=== PATIENT | male | born 1960 | race African-American/Black ===

== ENCOUNTER 2017-11-15 14:29 | Inpatient (IN) | payer OTHER ==
[2017-11-15 18:00] VITALS: BMI 20.4
--- NOTE | 2017-11-15 19:13 | HP ---
Admission ROS [facility] Chief Complaint: REHAB SERVICES Allergies/Adverse Reactions: Allergies Allergy/AdvReac Type Severity Reaction Status Date / Time No Known Allergies Allergy Verified 11/15/17 19:08 History of Present Illness: 57 Y.O. MAN WITH A ONE YEAR HISTORY OF K2 DEPENDENCE IS HERE SEEKING REHAB SERVICES. Exam Limitations: No Limitations - Ebola screening Have you traveled outside of the country in the last 21 days: No (N) Have you had contact with anyone from an Ebola affected area: No Have you been sick,other than usual withdrawal symptoms: No Do you have a fever: No - Review of Systems Constitutional: Changes in sleep EENT: reports: No Symptoms Reported Respiratory: reports: No Symptoms reported Cardiac: reports: No Symptoms Reported GI: reports: No Symptoms Reported : reports: No Symptoms Reported Musculoskeletal: reports: Back Pain Integumentary: reports: No Symptoms Reported Neuro: reports: No Symptoms reported Endocrine: reports: No Symptoms Reported Hematology: reports: No Symptoms Reported Psychiatric: reports: Judgement Intact, Mood/Affect Appropiate, Orientated x3 Other Systems: Reviewed and Negative Patient History - Patient Medical History Hx Anemia: No Hx Asthma: No Hx Chronic Obstructive Pulmonary Disease (COPD): No Hx Cancer: No Hx Cardiac Disorders: No Hx Congestive Heart Failure: No Hx Hypertension: No Hx Hypercholesterolemia: No Hx Pacemaker: No HX Cerebrovascular Accident: No Hx Seizures: No Hx Dementia: No Hx Diabetes: No Hx Gastrointestinal Disorders: Yes (TAKES PROTONIX ) Hx Liver Disease: No Hx Genitourinary Disorders: No Hx Sexually Transmitted Disorders: No Hx Renal Disease (ESRD): No Hx Thyroid Disease: No Hx Human Immunodeficiency Virus (HIV): No Hx Hepatitis C: No Hx Depression: Yes Hx Suicide Attempt: No Hx Bipolar Disorder: Yes Hx Schizophrenia: Yes - Patient Surgical History Past Surgical History: No - PPD History Previous Implant?: Yes Documented Results: Negative w/o proof Implanted On Prior R Admission?: No PPD to be Administered?: Yes - Reproductive History Patient is a Female of Child Bearing Age (11 -55 yrs old): No - Smoking Cessation Smoking history: Current every day smoker Have you smoked in the past 12 months: No Aproximately how many cigarettes per day: 4 Hx Chewing Tobacco Use: No Initiated information on smoking cessation: Yes 'Breaking Loose' booklet given: 11/15/17 - Substance & Tx. History Hx Alcohol Use: No Hx Substance Use: No Hx Substance Use Treatment: Yes (REHAB: ) - Substances Abused K2 Route: Smoking Frequency: 3-6 times per week Amount used: $3 Age of first use: 56 Date of Last Use: 11/07/17 Family Disease History - Family Disease History Family History: Denies Admission Physical Exam [facility] - Vital Signs Vital Signs: Vital Signs - 24 hr 11/15/17 17:58 Temperature 97.2 F L Pulse Rate 97 H Respiratory 18 Rate Blood Pressure 152/103 - Physical General Appearance: Yes: No Apparent Distress, Nourished, Appropriately Dressed , Anxious HEENTM: Yes: Hearing grossly Normal, Normal ENT Inspection, Normocephalic Respiratory: Yes: Chest Non-Tender, Lungs Clear, Normal Breath Sounds, No Respiratory Distress Neck: Yes: No masses,lesions,Nodules, Trachea in good position Breast: Yes: Breast Exam Deferred Cardiology: Yes: Regular Rhythm, Regular Rate Abdominal: Yes: Normal Bowel Sounds, Non Tender, Flat Genitourinary: Yes: Other (NO COMPLAINTS REPORTED) Back: Yes: Normal Inspection Musculoskeletal: Yes: full range of Motion, Gait Steady Extremities: Yes: Normal Capillary Refill, Normal Inspection, Normal Range of Motion, Non-Tender Neurological: Yes: Alert, Motor Strength 5/5, Normal Mood/Affect, Normal Response Integumentary: Yes: Normal Color, Dry, Warm Lymphatic: Yes: Within Normal Limits - Diagnostic (1) Other, mixed, or unspecified nondependent drug abuse, in remission Current Visit: Yes Status: Acute (2) Nicotine dependence Current Visit: Yes Status: Chronic Cleared for Admission [facility] - Detox or Rehab [facility] Level of Care: Observation Bed Claeared for Rehab Admission: Yes [facility] Breath Alcohol Content Breath Alcohol Content: 0 Urine Drug Screen - Results Drug Screen Negative: No Urine Drug Screen Results: THC-Marijuana Inpatient Rehab Admission - Initial Determination Are CD services needed?: Yes Free of communicable disease: Yes Not in need of hospitalization: Yes - Rehab Admission Criteria Previous failed treatment: Yes Poor recovery environment: Yes Comorbidities: Yes Lacks judgement: Yes Patient is meeting Inpatient Rehab admission criteria:: Yes
[2017-11-15] MEDS ORDERED: guaiFENesin/D-METHORPHAN HB 10 ML UNIT-DOSE CUPS PO PRN (19:34)
[2017-11-15] MEDS ORDERED: LOPERAMIDE HCL 2 MG CAPSULE PO PRN (19:34)
[2017-11-15] MEDS ORDERED: MAG HYDROX/AL HYDROX/SIMETH 30 ML UNIT-DOSE CUP PO PRN (19:34)
[2017-11-15] MEDS ORDERED: P-EPHED 60MG/TRIPROLIDI 2.5MG TABLET PO PRN (19:34)
[2017-11-15] MEDS ORDERED: MAGNESIUM HYDROX 2400MG/30ML ORAL SUSPENSION 30 ML CUP PO PRN (19:34)
[2017-11-15] MEDS ORDERED: hydrOXYzine PAMOATE 50 MG CAPSULE (FP) PO PRN (19:34)
[2017-11-15] MEDS ORDERED: MENTHOL/PHENOL 1 EACH UD MM PRN (19:34)
[2017-11-15] MEDS ORDERED: MAGNESIUM CITRATE 300 ML BOTTLE PO PRN (19:34)
[2017-11-15] MEDS ORDERED: DIPHENHYDRAMINE PO SCH (22:00)
[2017-11-15] MEDS ORDERED: TUBERCULIN PPD 5 TU/0.1ML VIAL ID ONE (22:18)
[2017-11-15] MEDS: THIAMINE HCL 100 MG TABLET (FP) PO SCH (22:19)
[2017-11-15 22:33] LABS: URINE APPEARANCE CLEAR; URINE BILIRUBIN NEGATIVE (NEGATIVE); URINE BLOOD NEGATIVE (NEGATIVE); URINE COLOR YELLOW; URINE GLUCOSE (UA) NEGATIVE (NEGATIVE); URINE KETONE NEGATIVE (NEGATIVE); URINE LEUK ESTERASE TRACE (NEGATIVE); URINE NITRITE NEGATIVE (NEGATIVE); URINE PROTEIN NEGATIVE (NEGATIVE)
[2017-11-15 22:55] LABS: EPI CELLS RARE /HPF (FEW); URINE MUCUS RARE
[2017-11-16] MEDS ORDERED: PANTOPRAZOLE SODIUM PO SCH (10:00)
[2017-11-16] MEDS: PRENATAL VITAMINS W/ FOLIC ACID TABLET (FP) PO SCH (10:12)
[2017-11-16] MEDS: NICOTINE 14 MG/24 HOURS TOPICAL PATCH TD SCH (10:13)
[2017-11-16] MEDS: NICOTINE POLACRILEX 2 MG GUM BC PRN (10:13)
[2017-11-16 10:26] LABS: HEMATOCRIT 38.8 % (35.4-49); HEMOGLOBIN 12.7 GM/dL (11.7-16.9); MCH 31.7 pg (25.7-33.7); MCHC 32.8 g/dl (32.0-35.9); MEAN CELL VOLUME 96.8 fl (80-96); MEAN PLT VOLUME 7.9 fl (7.5-11.1); PLATELET COUNT 280 K/MM3 (134-434); RBC 4.01 M/mm3 (4.00-5.60); RDW 14.5 % (11.9-15.9); WHITE BLOOD COUNT 12.1 K/mm3 (4.0-10.0)
[2017-11-16 10:35] LABS: ALBUMIN 3.6 g/dl (3.4-5.0); ANION GAP 7 (8-16); BLOOD UREA NITROGEN 13 mg/dL (7-18); CHLORIDE 107 mmol/L (98-107); CO2 29 mmol/L (21-32); GLUCOSE,RANDOM 145 mg/dL (74-106); POTASSIUM 3.8 mmol/L (3.5-5.1); SODIUM 143 mmol/L (136-145)
[2017-11-16 10:39] LABS: ALK PHOS 90 U/L (45-117); BILIRUBIN,TOTAL 0.2 mg/dL (0.2-1.0); CREATININE 1.1 mg/dL (0.7-1.3); SGOT/AST 21 U/L (15-37); SGPT/ALT 21 U/L (12-78)
[2017-11-16] MEDS: CHOLECALCIFEROL (VITAMIN D3) 1,000 UNIT TABLET (FP) PO SCH (14:28)
[2017-11-16] MEDS: PANTOPRAZOLE 40 MG TABLET (FP) PO SCH (14:28)
--- NOTE | 2017-11-16 16:01 | EKG ---
Test Reason : Blood Pressure : / mmHG Vent. Rate : 085 BPM Atrial Rate : 085 BPM P-R Int : 130 ms QRS Dur : 080 ms QT Int : 364 ms P-R-T Axes : 070 -21 023 degrees QTc Int : 433 ms NORMAL SINUS RHYTHM SEPTAL INFARCT , AGE UNDETERMINED ABNORMAL ECG NO PREVIOUS ECGS AVAILABLE Confirmed by BOWEN RINCON MD ([id number]) on 11/16/2017 4:00:53 PM Referred By: Confirmed By:BOWEN RINCON MD
[2017-11-16] MEDS: INSULIN SLIDING SCALE (NOVOLOG) 1 VIAL SQ SCH (17:11)
[2017-11-16] MEDS: THIAMINE HCL 100 MG TABLET (FP) PO SCH (21:25)
[2017-11-16] MEDS: diphenhydrAMINE HCL 50 MG CAPSULE PO PRN (21:26)
[2017-11-17] MEDS: INSULIN SLIDING SCALE (NOVOLOG) 1 VIAL SQ SCH ×3 (06:57→17:09)
[2017-11-17] MEDS: PRENATAL VITAMINS W/ FOLIC ACID TABLET (FP) PO SCH (10:20)
[2017-11-17] MEDS: NICOTINE 14 MG/24 HOURS TOPICAL PATCH TD SCH (10:20)
[2017-11-17] MEDS: CHOLECALCIFEROL (VITAMIN D3) 1,000 UNIT TABLET (FP) PO SCH (10:20)
[2017-11-17] MEDS: PANTOPRAZOLE 40 MG TABLET (FP) PO SCH (10:20)
[2017-11-17] MEDS: NICOTINE POLACRILEX 2 MG GUM BC PRN (10:21)
--- NOTE | 2017-11-17 13:19 | HP ---
Psychiatrist Admission - Data Date of interview: 11/17/17 Admission source: [facility] Identifying data: This is the first [facility] admission for this 57 years old single Black male, unemployed on SSI, living in transitional housing([facility]) Medical History: Significant for GERD. Smokes 4 cigarettes daily Psychiatric History: Patient reports multiple psychiatric hospitalizations since age 19. He is known to [facility](multiple admissions), [facility] and most recent one in May 2017 to [facility]. Receives psychiatric outpatient services from [facility](outreach) and he is prescribed Risperdal 4 mg po BID, Risperdal Consta 25 mg IN Q 2 weeks and Benadryl 50 mg po HS. Claims he got the injection before 11/07/17. Reports being diagnosed with Schizoaffective Disorder. At present reports feeling and sleeping well. Denies experiencing psychotic, manic or depressive symptoms as well as S/H ideations Physical/Sexual Abuse/Trauma History: Denies history of emotional, physical or sexual abuse as well as DV relationship. No service Additional Comment: Reports history of a few previous [place] Vital Signs: Vital Signs - 24 hr 11/17/17 11/17/17 11/17/17 00:30 03:30 07:05 Temperature 97.7 F Pulse Rate 80 Respiratory 18 18 18 Rate Blood Pressure 130/98 Allergies/Adverse Reactions: Allergies Allergy/AdvReac Type Severity Reaction Status Date / Time No Known Allergies Allergy Verified 11/15/17 19:08 Date of last physical exam: 11/15/17 Concur with the findings of this exam: Yes - Substance Abuse/Tx History Hx Alcohol Use: No Hx Substance Use: Yes Substance Use Type: Marijuana (Started using K2 at age 56, consumes $3 worth 3- 6 times weekly.Last smoked on 11/07/17) Hx Substance Use Treatment: Yes (One inpt rehab in the 's in [place]) Mental Status Exam - Mental Status Exam Alert and Oriented to: Time, Place, Person Cognitive Function: Fair Patient Appearance: Disheveled Mood: Hopeful, Euthymic Affect: Blunted Patient Behavior: Cooperative Speech Pattern: Clear Voice Loudness: Normal Thought Process: Intact, Goal Oriented Thought Disorder: Not Present Hallucinations: Denies Suicidal Ideation: Denies Homicidal Ideation: Denies Insight/Judgement: Fair Sleep: Well Appetite: Good Muscle strength/Tone: Normal Gait/Station: Normal Psychiatric Findings - Problem List ([place] 1, 2,3) (1) Cannabis dependence Current Visit: Yes Status: Acute (2) Nicotine dependence Current Visit: Yes Status: Chronic (3) Schizoaffective disorder Current Visit: Yes Status: Chronic (4) GERD (gastroesophageal reflux disease) Current Visit: Yes Status: Chronic - Initial Treatment Plan Initial Treatment Plan: 1) Continue Risperdal 4 mg po BID and Benadryl 50 mg po HS. 2) Get collateral information on Risperdal Consta and act accordingly. According to pharmacy claim, script for Risperdal consta was last filled on 10/21 for 2 doses. If it was given on the week of 10/21/17, it will would be due this week. 3) Monitor progress
[2017-11-17] MEDS: THIAMINE HCL 100 MG TABLET (FP) PO SCH (21:04)
[2017-11-17] MEDS: diphenhydrAMINE HCL 50 MG CAPSULE PO PRN (21:05)
[2017-11-18] MEDS: INSULIN SLIDING SCALE (NOVOLOG) 1 VIAL SQ SCH ×3 (06:55→17:04)
[2017-11-18] MEDS: PANTOPRAZOLE 40 MG TABLET (FP) PO SCH (09:43)
[2017-11-18] MEDS: PRENATAL VITAMINS W/ FOLIC ACID TABLET (FP) PO SCH (09:44)
[2017-11-18] MEDS: CHOLECALCIFEROL (VITAMIN D3) 1,000 UNIT TABLET (FP) PO SCH (09:44)
[2017-11-18] MEDS: NICOTINE 14 MG/24 HOURS TOPICAL PATCH TD SCH (09:44)
[2017-11-18] MEDS ORDERED: PT OWN MED DRAWER 7, Y5N ONE (10:36)
[2017-11-18] MEDS: risperiDONE 2 MG TABLET PO SCH ×2 (11:25→22:02)
--- NOTE | 2017-11-18 13:35 | PN ---
[facility] Progress Note Note: Psychiatric nurse practitioner: Pt. seen for initiation of treatment. Dr. Marcos's note read and appreciated. Pharmacy claims reviewed. Principal Cyber Engineer contacted patient's pharmacy and pharmacist Dr. Mejia was able to verify patient's risperdal dose of 4mg BID. Last prescription was delivered to patient on 10/22/2017. Pt. reports most recent risperdal dose given on saturday11/15/17. Principal Cyber Engineer spoke to Dr. marcos and psychiatrist also highly recommended patient remains on risperdal 4mg BID until risperdal consta information is obtained from patients outpatient department. Pt. informed of the risk of sexual impotence, gynecomastia, and involuntary abnormal movements such as akathesia and dystonia. Pt. agreeable with plan. Verbal consent given. Will continue to monitor patient.
[2017-11-18] MEDS: THIAMINE HCL 100 MG TABLET (FP) PO SCH (22:02)
[2017-11-18] MEDS: diphenhydrAMINE HCL 50 MG CAPSULE PO PRN (22:02)
[2017-11-19] MEDS: ACETAMINOPHEN 325 MG TABLET (FP) PO PRN ×2 (06:17→21:56)
[2017-11-19] MEDS: INSULIN SLIDING SCALE (NOVOLOG) 1 VIAL SQ SCH ×3 (07:10→17:00)
[2017-11-19] MEDS: PRENATAL VITAMINS W/ FOLIC ACID TABLET (FP) PO SCH (10:29)
[2017-11-19] MEDS: PANTOPRAZOLE 40 MG TABLET (FP) PO SCH (10:29)
[2017-11-19] MEDS: risperiDONE 2 MG TABLET PO SCH ×2 (10:29→21:55)
[2017-11-19] MEDS: CHOLECALCIFEROL (VITAMIN D3) 1,000 UNIT TABLET (FP) PO SCH (10:29)
[2017-11-19] MEDS: NICOTINE 14 MG/24 HOURS TOPICAL PATCH TD SCH (10:30)
[2017-11-19] MEDS: diphenhydrAMINE HCL 50 MG CAPSULE PO PRN (21:55)
[2017-11-19] MEDS: THIAMINE HCL 100 MG TABLET (FP) PO SCH (21:55)
[2017-11-20] MEDS: INSULIN SLIDING SCALE (NOVOLOG) 1 VIAL SQ SCH ×3 (07:34→16:58)
[2017-11-20] MEDS: CHOLECALCIFEROL (VITAMIN D3) 1,000 UNIT TABLET (FP) PO SCH (10:15)
[2017-11-20] MEDS: PANTOPRAZOLE 40 MG TABLET (FP) PO SCH (10:15)
[2017-11-20] MEDS: PRENATAL VITAMINS W/ FOLIC ACID TABLET (FP) PO SCH (10:15)
[2017-11-20] MEDS: risperiDONE 2 MG TABLET PO SCH ×2 (10:15→21:40)
[2017-11-20] MEDS: NICOTINE 14 MG/24 HOURS TOPICAL PATCH TD SCH (10:16)
[2017-11-20] MEDS ORDERED: PT OWN MED DRAWER 7, Y5N ONE (11:30)
[2017-11-20 14:15] LABS: URINE APPEARANCE CLEAR; URINE BILIRUBIN NEGATIVE (NEGATIVE); URINE BLOOD NEGATIVE (NEGATIVE); URINE COLOR YELLOW; URINE GLUCOSE (UA) NEGATIVE (NEGATIVE); URINE KETONE NEGATIVE (NEGATIVE); URINE LEUK ESTERASE NEGATIVE (NEGATIVE); URINE NITRITE NEGATIVE (NEGATIVE); URINE PROTEIN NEGATIVE (NEGATIVE); URINE UROBILINOGEN NEGATIVE mg/dL (0.2-1.0)
--- NOTE | 2017-11-20 17:28 | PN ---
[facility] Progress Note Note: Psychiatric Nurse Practitioner: STACY Anaya able to contact Mr. Bright who is Mr. Kearney's case fitter at the clinic he attends. STACY Anaya was informed that the most recent Risperdal consta 25mg was given on 11/05/17.
[2017-11-20] MEDS: diphenhydrAMINE HCL 50 MG CAPSULE PO PRN (21:40)
[2017-11-20] MEDS: THIAMINE HCL 100 MG TABLET (FP) PO SCH (21:40)
[2017-11-21] MEDS: INSULIN SLIDING SCALE (NOVOLOG) 1 VIAL SQ SCH ×3 (06:24→17:10)
[2017-11-21] MEDS ORDERED: PT OWN MED DRAWER 7, Y5N ONE (09:49)
[2017-11-21] MEDS: CHOLECALCIFEROL (VITAMIN D3) 1,000 UNIT TABLET (FP) PO SCH (10:45)
[2017-11-21] MEDS: risperiDONE 2 MG TABLET PO SCH ×2 (10:45→21:11)
[2017-11-21] MEDS: PRENATAL VITAMINS W/ FOLIC ACID TABLET (FP) PO SCH (10:45)
[2017-11-21] MEDS: PANTOPRAZOLE 40 MG TABLET (FP) PO SCH (10:45)
[2017-11-21] MEDS: NICOTINE POLACRILEX 2 MG GUM BC PRN (10:46)
[2017-11-21] MEDS: NICOTINE 14 MG/24 HOURS TOPICAL PATCH TD SCH (10:46)
[2017-11-21] MEDS: diphenhydrAMINE HCL 50 MG CAPSULE PO PRN (21:11)
[2017-11-21] MEDS: THIAMINE HCL 100 MG TABLET (FP) PO SCH (21:11)
[2017-11-22] MEDS: INSULIN SLIDING SCALE (NOVOLOG) 1 VIAL SQ SCH ×3 (07:14→16:57)
[2017-11-22] MEDS: PANTOPRAZOLE 40 MG TABLET (FP) PO SCH (10:42)
[2017-11-22] MEDS: risperiDONE 2 MG TABLET PO SCH ×2 (10:42→21:46)
[2017-11-22] MEDS: PRENATAL VITAMINS W/ FOLIC ACID TABLET (FP) PO SCH (10:42)
[2017-11-22] MEDS: CHOLECALCIFEROL (VITAMIN D3) 1,000 UNIT TABLET (FP) PO SCH (10:42)
[2017-11-22] MEDS: NICOTINE 14 MG/24 HOURS TOPICAL PATCH TD SCH (10:42)
--- NOTE | 2017-11-22 17:07 | PN ---
S Progress Note Note: Psychiatric nurse practitioner note: Phone call made today to patient's clinic but was unable to make contact with treatment team concerning giving patient risperdal consta in addition to continuing PO medications. Therefore patient is to remain on risperdal 4mg BID. Pt. agreeable with plan. No psychosis or change in behavior noted. Will continue to monitor.
[2017-11-22] MEDS: THIAMINE HCL 100 MG TABLET (FP) PO SCH (21:46)
[2017-11-22] MEDS: diphenhydrAMINE HCL 50 MG CAPSULE PO PRN (21:46)
[2017-11-23] MEDS: INSULIN SLIDING SCALE (NOVOLOG) 1 VIAL SQ SCH ×3 (06:20→16:48)
[2017-11-23] MEDS: CHOLECALCIFEROL (VITAMIN D3) 1,000 UNIT TABLET (FP) PO SCH (10:20)
[2017-11-23] MEDS: NICOTINE 14 MG/24 HOURS TOPICAL PATCH TD SCH (10:20)
[2017-11-23] MEDS: PANTOPRAZOLE 40 MG TABLET (FP) PO SCH (10:20)
[2017-11-23] MEDS: PRENATAL VITAMINS W/ FOLIC ACID TABLET (FP) PO SCH (10:20)
[2017-11-23] MEDS: risperiDONE 2 MG TABLET PO SCH ×2 (10:20→21:29)
[2017-11-23] MEDS ORDERED: PT OWN MED DRAWER 7, Y5N ONE (16:22)
[2017-11-23] MEDS: IBUPROFEN 400 MG TABLET (FP) PO PRN (21:29)
[2017-11-23] MEDS: THIAMINE HCL 100 MG TABLET (FP) PO SCH (21:29)
[2017-11-23] MEDS: diphenhydrAMINE HCL 50 MG CAPSULE PO PRN (21:30)
[2017-11-24] MEDS: INSULIN SLIDING SCALE (NOVOLOG) 1 VIAL SQ SCH (07:07)
--- NOTE | 2017-11-24 07:47 | PN ---
[facility] Progress Note Note: decrease bgm to acbk for bgm less than 150mg/dl dc insulin sliding scale
[2017-11-24] MEDS: PANTOPRAZOLE 40 MG TABLET (FP) PO SCH (10:18)
[2017-11-24] MEDS: risperiDONE 2 MG TABLET PO SCH ×2 (10:18→21:52)
[2017-11-24] MEDS: PRENATAL VITAMINS W/ FOLIC ACID TABLET (FP) PO SCH (10:18)
[2017-11-24] MEDS: CHOLECALCIFEROL (VITAMIN D3) 1,000 UNIT TABLET (FP) PO SCH (10:18)
[2017-11-24] MEDS: IBUPROFEN 400 MG TABLET (FP) PO PRN ×2 (10:18→21:53)
[2017-11-24] MEDS: NICOTINE 14 MG/24 HOURS TOPICAL PATCH TD SCH (10:20)
[2017-11-24] MEDS: THIAMINE HCL 100 MG TABLET (FP) PO SCH (21:53)
[2017-11-25] MEDS: risperiDONE 2 MG TABLET PO SCH ×2 (10:25→21:34)
[2017-11-25] MEDS: NICOTINE 14 MG/24 HOURS TOPICAL PATCH TD SCH (10:25)
[2017-11-25] MEDS: CHOLECALCIFEROL (VITAMIN D3) 1,000 UNIT TABLET (FP) PO SCH (10:25)
[2017-11-25] MEDS: PANTOPRAZOLE 40 MG TABLET (FP) PO SCH (10:25)
[2017-11-25] MEDS: PRENATAL VITAMINS W/ FOLIC ACID TABLET (FP) PO SCH (10:25)
[2017-11-25] MEDS: IBUPROFEN 400 MG TABLET (FP) PO PRN ×2 (10:26→21:35)
[2017-11-25] MEDS: THIAMINE HCL 100 MG TABLET (FP) PO SCH (21:34)
[2017-11-25] MEDS: diphenhydrAMINE HCL 50 MG CAPSULE PO PRN (21:34)
[2017-11-26] MEDS: risperiDONE 2 MG TABLET PO SCH ×2 (10:23→21:31)
[2017-11-26] MEDS: PANTOPRAZOLE 40 MG TABLET (FP) PO SCH (10:23)
[2017-11-26] MEDS: PRENATAL VITAMINS W/ FOLIC ACID TABLET (FP) PO SCH (10:23)
[2017-11-26] MEDS: CHOLECALCIFEROL (VITAMIN D3) 1,000 UNIT TABLET (FP) PO SCH (10:23)
[2017-11-26] MEDS: NICOTINE POLACRILEX 2 MG GUM BC PRN (10:24)
[2017-11-26] MEDS: IBUPROFEN 400 MG TABLET (FP) PO PRN (10:24)
[2017-11-26] MEDS: NICOTINE 14 MG/24 HOURS TOPICAL PATCH TD SCH (10:25)
[2017-11-26] MEDS: THIAMINE HCL 100 MG TABLET (FP) PO SCH (21:31)
[2017-11-27] MEDS: IBUPROFEN 400 MG TABLET (FP) PO PRN (06:17)
[2017-11-27] MEDS: NICOTINE 14 MG/24 HOURS TOPICAL PATCH TD SCH (10:24)
[2017-11-27] MEDS: PANTOPRAZOLE 40 MG TABLET (FP) PO SCH (10:24)
[2017-11-27] MEDS: CHOLECALCIFEROL (VITAMIN D3) 1,000 UNIT TABLET (FP) PO SCH (10:24)
[2017-11-27] MEDS: PRENATAL VITAMINS W/ FOLIC ACID TABLET (FP) PO SCH (10:24)
[2017-11-27] MEDS: risperiDONE 2 MG TABLET PO SCH ×2 (10:24→21:38)
[2017-11-27] MEDS: NICOTINE POLACRILEX 2 MG GUM BC PRN (10:25)
--- NOTE | 2017-11-27 15:43 | PN ---
[facility] Progress Note (SOAP) Subjective: c/o new onset left shoulder pain, no h/o trauma Objective: 11/27/17 15:42 Vital Signs - 24 hr 11/27/17 11/27/17 11/27/17 00:30 03:30 06:58 Temperature 98.3 F Pulse Rate 87 Respiratory 18 20 18 Rate Blood Pressure 125/89 Laboratory Tests 11/15/17 11/16/17 11/16/17 20:16 09:30 09:30 WBC 12.1 H RBC 4.01 Hgb 12.7 Hct 38.8 MCV 96.8 H MCH 31.7 MCHC 32.8 RDW 14.5 Plt Count 280 MPV 7.9 Sodium 143 Potassium 3.8 Chloride 107 Carbon Dioxide 29 Anion Gap 7 L BUN 13 Creatinine 1.1 Creat Clearance w eGFR > 60 POC Glucometer Random Glucose 145 H Fasting Glucose Hemoglobin A1c % Calcium 9.0 Total Bilirubin 0.2 AST 21 ALT 21 Alkaline Phosphatase 90 Total Protein 7.0 Albumin 3.6 Urine Color Yellow Urine Appearance Clear Urine pH 6.0 Ur Specific [place] 1.020 Urine Protein Negative Urine Glucose (UA) Negative Urine Ketones Negative Urine Blood Negative Urine Nitrite Negative Urine Bilirubin Negative Urine Urobilinogen 2.0 Ur Leukocyte Esterase Trace Urine WBC (Auto) 6 Urine RBC (Auto) 3 Ur Epithelial Cells Rare Urine Mucus Rare RPR Titer 11/16/17 11/16/17 11/17/17 09:30 17:11 06:56 WBC RBC Hgb Hct MCV MCH MCHC RDW Plt Count MPV Sodium Potassium Chloride Carbon Dioxide Anion Gap BUN Creatinine Creat Clearance w eGFR POC Glucometer 87 124 Random Glucose Fasting Glucose Hemoglobin A1c % Calcium Total Bilirubin AST ALT Alkaline Phosphatase Total Protein Albumin Urine Color Urine Appearance Urine pH Ur Specific [place] Urine Protein Urine Glucose (UA) Urine Ketones Urine Blood Urine Nitrite Urine Bilirubin Urine Urobilinogen Ur Leukocyte Esterase Urine WBC (Auto) Urine RBC (Auto) Ur Epithelial Cells Urine Mucus RPR Titer Nonreactive 11/17/17 11/17/17 11/17/17 08:00 08:00 10:23 WBC RBC Hgb Hct MCV MCH MCHC RDW Plt Count MPV Sodium Potassium Chloride Carbon Dioxide Anion Gap BUN Creatinine Creat Clearance w eGFR POC Glucometer 104 Random Glucose Fasting Glucose 111 H Hemoglobin A1c % 5.5 Calcium Total Bilirubin AST ALT Alkaline Phosphatase Total Protein Albumin Urine Color Urine Appearance Urine pH Ur Specific [place] Urine Protein Urine Glucose (UA) Urine Ketones Urine Blood Urine Nitrite Urine Bilirubin Urine Urobilinogen Ur Leukocyte Esterase Urine WBC (Auto) Urine RBC (Auto) Ur Epithelial Cells Urine Mucus RPR Titer 11/17/17 11/18/17 11/18/17 17:08 06:43 11:28 WBC RBC Hgb Hct MCV MCH MCHC RDW Plt Count MPV Sodium Potassium Chloride Carbon Dioxide Anion Gap BUN Creatinine Creat Clearance w eGFR POC Glucometer 109 101 126 Random Glucose Fasting Glucose Hemoglobin A1c % Calcium Total Bilirubin AST ALT Alkaline Phosphatase Total Protein Albumin Urine Color Urine Appearance Urine pH Ur Specific [place] Urine Protein Urine Glucose (UA) Urine Ketones Urine Blood Urine Nitrite Urine Bilirubin Urine Urobilinogen Ur Leukocyte Esterase Urine WBC (Auto) Urine RBC (Auto) Ur Epithelial Cells Urine Mucus RPR Titer 11/18/17 11/19/17 11/19/17 17:04 06:19 11:50 WBC RBC Hgb Hct MCV MCH MCHC RDW Plt Count MPV Sodium Potassium Chloride Carbon Dioxide Anion Gap BUN Creatinine Creat Clearance w eGFR POC Glucometer 146 110 121 Random Glucose Fasting Glucose Hemoglobin A1c % Calcium Total Bilirubin AST ALT Alkaline Phosphatase Total Protein Albumin Urine Color Urine Appearance Urine pH Ur Specific [place] Urine Protein Urine Glucose (UA) Urine Ketones Urine Blood Urine Nitrite Urine Bilirubin Urine Urobilinogen Ur Leukocyte Esterase Urine WBC (Auto) Urine RBC (Auto) Ur Epithelial Cells Urine Mucus RPR Titer 11/19/17 11/20/17 11/20/17 17:00 06:22 11:45 WBC RBC Hgb Hct MCV MCH MCHC RDW Plt Count MPV Sodium Potassium Chloride Carbon Dioxide Anion Gap BUN Creatinine Creat Clearance w eGFR POC Glucometer 135 97 Random Glucose Fasting Glucose Hemoglobin A1c % Calcium Total Bilirubin AST ALT Alkaline Phosphatase Total Protein Albumin Urine Color Yellow Urine Appearance Clear Urine pH 5.0 Ur Specific [place] 1.023 Urine Protein Negative Urine Glucose (UA) Negative Urine Ketones Negative Urine Blood Negative Urine Nitrite Negative Urine Bilirubin Negative Urine Urobilinogen Negative Ur Leukocyte Esterase Negative Urine WBC (Auto) Urine RBC (Auto) Ur Epithelial Cells Urine Mucus RPR Titer 11/20/17 11/20/17 11/21/17 11:51 16:57 06:23 WBC RBC Hgb Hct MCV MCH MCHC RDW Plt Count MPV Sodium Potassium Chloride Carbon Dioxide Anion Gap BUN Creatinine Creat Clearance w eGFR POC Glucometer 108 121 95 Random Glucose Fasting Glucose Hemoglobin A1c % Calcium Total Bilirubin AST ALT Alkaline Phosphatase Total Protein Albumin Urine Color Urine Appearance Urine pH Ur Specific [place] Urine Protein Urine Glucose (UA) Urine Ketones Urine Blood Urine Nitrite Urine Bilirubin Urine Urobilinogen Ur Leukocyte Esterase Urine WBC (Auto) Urine RBC (Auto) Ur Epithelial Cells Urine Mucus RPR Titer 11/21/17 11/21/17 11/22/17 11:33 17:10 07:14 WBC RBC Hgb Hct MCV MCH MCHC RDW Plt Count MPV Sodium Potassium Chloride Carbon Dioxide Anion Gap BUN Creatinine Creat Clearance w eGFR POC Glucometer 98 100 95 Random Glucose Fasting Glucose Hemoglobin A1c % Calcium Total Bilirubin AST ALT Alkaline Phosphatase Total Protein Albumin Urine Color Urine Appearance Urine pH Ur Specific [place] Urine Protein Urine Glucose (UA) Urine Ketones Urine Blood Urine Nitrite Urine Bilirubin Urine Urobilinogen Ur Leukocyte Esterase Urine WBC (Auto) Urine RBC (Auto) Ur Epithelial Cells Urine Mucus RPR Titer 11/22/17 11/22/17 11/23/17 12:04 16:56 06:20 WBC RBC Hgb Hct MCV MCH MCHC RDW Plt Count MPV Sodium Potassium Chloride Carbon Dioxide Anion Gap BUN Creatinine Creat Clearance w eGFR POC Glucometer 122 113 85 Random Glucose Fasting Glucose Hemoglobin A1c % Calcium Total Bilirubin AST ALT Alkaline Phosphatase Total Protein Albumin Urine Color Urine Appearance Urine pH Ur Specific [place] Urine Protein Urine Glucose (UA) Urine Ketones Urine Blood Urine Nitrite Urine Bilirubin Urine Urobilinogen Ur Leukocyte Esterase Urine WBC (Auto) Urine RBC (Auto) Ur Epithelial Cells Urine Mucus RPR Titer 11/23/17 11/23/17 11/24/17 11:56 16:47 06:15 WBC RBC Hgb Hct MCV MCH MCHC RDW Plt Count MPV Sodium Potassium Chloride Carbon Dioxide Anion Gap BUN Creatinine Creat Clearance w eGFR POC Glucometer 143 101 99 Random Glucose Fasting Glucose Hemoglobin A1c % Calcium Total Bilirubin AST ALT Alkaline Phosphatase Total Protein Albumin Urine Color Urine Appearance Urine pH Ur Specific [place] Urine Protein Urine Glucose (UA) Urine Ketones Urine Blood Urine Nitrite Urine Bilirubin Urine Urobilinogen Ur Leukocyte Esterase Urine WBC (Auto) Urine RBC (Auto) Ur Epithelial Cells Urine Mucus RPR Titer 11/25/17 11/26/17 11/27/17 06:16 06:22 06:19 WBC RBC Hgb Hct MCV MCH MCHC RDW Plt Count MPV Sodium Potassium Chloride Carbon Dioxide Anion Gap BUN Creatinine Creat Clearance w eGFR POC Glucometer 90 100 95 Random Glucose Fasting Glucose Hemoglobin A1c % Calcium Total Bilirubin AST ALT Alkaline Phosphatase Total Protein Albumin Urine Color Urine Appearance Urine pH Ur Specific [place] Urine Protein Urine Glucose (UA) Urine Ketones Urine Blood Urine Nitrite Urine Bilirubin Urine Urobilinogen Ur Leukocyte Esterase Urine WBC (Auto) Urine RBC (Auto) Ur Epithelial Cells Urine Mucus RPR Titer tendr palpation left shoulder musculature no eryhema Assessment: 11/27/17 15:42 [id number] shoulder pain - naprosyn bid, flexeril, neurontin for pain
[2017-11-27] MEDS: LIDOCAINE 5% TOPICAL PATCH TP SCH (16:56)
[2017-11-27] MEDS: CYCLOBENZAPRINE HCL 10 MG TABLET (FP) PO SCH ×2 (16:59→21:37)
[2017-11-27] MEDS: GABAPENTIN 100 MG CAPSULE (FP) PO SCH ×2 (16:59→21:37)
[2017-11-27] MEDS: THIAMINE HCL 100 MG TABLET (FP) PO SCH (21:37)
[2017-11-27] MEDS: diphenhydrAMINE HCL 50 MG CAPSULE PO PRN (21:37)
[2017-11-27] MEDS: NAPROXEN 500 MG TABLET (FP) PO SCH (21:37)
[2017-11-27] MEDS: LIDOCAINE PATCH REMOVAL MC SCH (21:38)
[2017-11-28] MEDS: CYCLOBENZAPRINE HCL 10 MG TABLET (FP) PO SCH ×3 (06:35→21:17)
[2017-11-28] MEDS: GABAPENTIN 100 MG CAPSULE (FP) PO SCH ×3 (06:35→21:17)
[2017-11-28] MEDS: LIDOCAINE 5% TOPICAL PATCH TP SCH (10:30)
[2017-11-28] MEDS: risperiDONE 2 MG TABLET PO SCH ×2 (10:31→21:17)
[2017-11-28] MEDS: NICOTINE 14 MG/24 HOURS TOPICAL PATCH TD SCH (10:31)
[2017-11-28] MEDS: CHOLECALCIFEROL (VITAMIN D3) 1,000 UNIT TABLET (FP) PO SCH (10:31)
[2017-11-28] MEDS: NAPROXEN 500 MG TABLET (FP) PO SCH ×2 (10:31→21:17)
[2017-11-28] MEDS: PRENATAL VITAMINS W/ FOLIC ACID TABLET (FP) PO SCH (10:31)
[2017-11-28] MEDS: PANTOPRAZOLE 40 MG TABLET (FP) PO SCH (10:31)
[2017-11-28] MEDS: THIAMINE HCL 100 MG TABLET (FP) PO SCH (21:17)
[2017-11-28] MEDS: LIDOCAINE PATCH REMOVAL MC SCH (21:17)
[2017-11-29] MEDS: GABAPENTIN 100 MG CAPSULE (FP) PO SCH (06:40)
[2017-11-29] MEDS: CYCLOBENZAPRINE HCL 10 MG TABLET (FP) PO SCH (06:40)
[2017-11-29 07:17] VITALS: BP 122/81; PULSE 92; TEMP 97.5
[2017-11-29] MEDS ORDERED: PT OWN MED DRAWER 7, Y5N ONE (09:24)
--- NOTE | 2017-11-29 09:36 | PN ---
Psychiatric Progress Note Vital Signs: Vital Signs Period Temp Pulse Resp BP Sys/Mccracken Pulse Ox Last 24 Hr 97.5 F 92 16-18 122/81 Date of Session: 11/29/17 Chief Complaint:: "Discharge" HPI: [facility] for Cannabis dependence. ROS: Unremarkable. Current Medications: Active Medications Generic Name Dose Route Start Last Admin Trade Name Freq PRN Reason Stop Dose Admin Acetaminophen 650 mg 11/15/17 19:34 11/19/17 21:56 Tylenol - PO 650 mg Q4H PRN Administration FEVER Al Hydroxide/Mg Hydroxide 30 ml 11/15/17 19:34 Mylanta Oral Suspension - PO Q6H PRN DYSPEPSIA Cholecalciferol 1,000 unit 11/16/17 14:00 11/28/17 10:31 Vitamin D3 - PO 1,000 unit DAILY FRANK Administration Cyclobenzaprine HCl 10 mg 11/27/17 16:30 11/29/17 06:40 Flexeril - PO 10 mg TID FRANK Administration Diphenhydramine HCl 50 mg 11/16/17 22:00 11/27/17 21:37 Benadryl - PO 50 mg HS PRN Administration INSOMNIA Eucalyptus/Menthol/Phenol/Sorbitol 1 each 11/15/17 19:34 Cepastat Lozenge - MM Q4H PRN SORE THROAT Gabapentin 100 mg 11/27/17 16:30 11/29/17 06:40 Neurontin - PO 100 mg TID FRANK Administration Guaifenesin 10 ml 11/15/17 19:34 Robitussin Dm - PO Q6H PRN COUGH Hydroxyzine Pamoate 50 mg 11/15/17 19:34 Vistaril - PO Q4H PRN AGITATION Lidocaine 1 patch 11/27/17 16:30 11/28/17 10:30 Lidoderm Patch - TP 1 patch DAILY FRANK Administration Loperamide HCl 4 mg 11/15/17 19:34 Imodium - PO Q6H PRN DIARRHEA Magnesium Citrate 300 ml 11/15/17 19:34 Citroma - PO Q48H PRN CONSTIPATION Magnesium Hydroxide 30 ml 11/15/17 19:34 Milk Of Magnesia - PO DAILY PRN CONSTIPATION Miscellaneous 1 each 11/27/17 22:00 11/28/17 21:17 Lidoderm Patch Removal MC 1 each DAILY@2200 FRANK Administration Naproxen 500 mg 11/27/17 22:00 11/28/17 21:17 Naprosyn - PO 500 mg BID FRANK Administration Nicotine 14 mg 11/16/17 10:00 11/28/17 10:31 Nicoderm Patch - TD Not Given DAILY FRANK Nicotine Polacrilex 2 mg 11/15/17 19:34 11/27/17 10:25 Nicorette Gum - BC 2 mg Q2H PRN Administration NICOTINE REPLACEMENT RX Pantoprazole Sodium 40 mg 11/16/17 14:00 11/28/17 10:31 Protonix - PO 40 mg DAILY FRANK Administration Multivit/Folic Acid/Iron 1 tab 11/16/17 10:00 11/28/17 10:31 Vitamins (Sjr) - PO 1 tab DAILY FRANK Administration Pseudoephedrine/Triprolidine 1 combo 11/15/17 19:34 Actifed - PO TID PRN NASAL CONGESTION Risperidone 4 mg 11/18/17 10:00 11/28/17 21:17 Risperdal - PO 4 mg BID FRANK Administration Thiamine HCl 100 mg 11/15/17 22:00 11/28/17 21:17 Vitamin B1 - PO 100 mg HS FRANK Administration Medication(s) Change(s): No. Current Side Effect: No Lab tests ordered: No Lab tests reviewed: Yes Provider note:: Patient requesting discharge on 11/29/17 after completing 14/28 days of the inpatient rehabilitation program on [facility]. Patient is able to understand the consequences of his addiction and the need to make positive changes to his lifestyle in order to maintain abstinence. Pt. 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 Pt. responded well to Risperdal 4mg BID. A prescription of 30 day supply of risperdal 4mg BID will be sent electronically to patient's pharmacy, [facility], [id number] [place] [address]. Pt. is stable for discharge on 11/29/17. Total face to face time:: 35 Mental Status Exam - Mental Status Exam Alert and Oriented to: Time, Place, Person Cognitive Function: Good Patient Appearance: Well Groomed Mood: Euthymic Affect: Mood Congruent Patient Behavior: Cooperative Speech Pattern: Appropriate Voice Loudness: Normal Thought Process: Goal Oriented Thought Disorder: Not Present Hallucinations: Denies Suicidal Ideation: Denies Homicidal Ideation: Denies Insight/Judgement: Fair Sleep: Well Appetite: Good Muscle strength/Tone: Normal Gait/Station: Normal Psychiatric Treatment Plan - Problem List (1) Cannabis dependence Comment: . (2) Nicotine dependence Comment: . (3) Schizoaffective disorder Comment: .
[2017-11-29] MEDS: PANTOPRAZOLE 40 MG TABLET (FP) PO SCH (09:40)
[2017-11-29] MEDS: CHOLECALCIFEROL (VITAMIN D3) 1,000 UNIT TABLET (FP) PO SCH (09:40)
[2017-11-29] MEDS: NAPROXEN 500 MG TABLET (FP) PO SCH (09:40)
[2017-11-29] MEDS: risperiDONE 2 MG TABLET PO SCH (09:40)
[2017-11-29] MEDS: PRENATAL VITAMINS W/ FOLIC ACID TABLET (FP) PO SCH (09:40)
[2017-11-29] MEDS: NICOTINE 14 MG/24 HOURS TOPICAL PATCH TD SCH (09:41)
[2017-11-29] MEDS: LIDOCAINE 5% TOPICAL PATCH TP SCH (09:41)
== END 2017-11-29 09:40 | disposition home or self-care (01) | DRG 772 ==
LOC: YASAS 14:29 → Y3W 19:11
PROVIDERS: ADMIT Psychiatry & Neurology Psychiatry; ATTEND Psychiatry & Neurology Psychiatry
PROC: HZ42ZZZ Group Counseling for Substance Abuse Treatment, Cognitive-Behavioral (ICD-10-PCS; principal; 2017-11-15)
DX: F12.20 Cannabis dependence, uncomplicated (principal); F17.210 Nicotine dependence, cigarettes, uncomplicated; F25.9 Schizoaffective disorder, unspecified; F31.9 Bipolar disorder, unspecified; K21.9 Gastro-esophageal reflux disease without esophagitis
CPT/HCPCS: 36415; 80053; 81003; 81015; 82947; 82962; 83036; 85027; 86593; 93005; 93010